=== PATIENT | male | born 1995 | race American Indian/Alaskan Native ===

== ENCOUNTER 2016-06-26 10:03 | Emergency (ER) | payer OTHER ==
[2016-06-26 10:28] VITALS: BP 129/82
--- NOTE | 2016-06-26 12:11 | Emergency Department Report ---
ED Lower Extremity HPI - General Chief Complaint: Extremity Injury, Lower Stated Complaint: LT ANKLE INJURY Time Seen by Provider: 06/26/16 11:53 Source: patient Mode of arrival: Ambulatory Limitations: No Limitations - History of Present Illness Initial Comments: Pt injured L ankle while playing basketball yesterday. No numbness. MD Complaint: ankle injury -: Sudden, days(s) (1) Injury: Ankle: Left Type of Injury: unknown Place: street/outdoors Severity: moderate Severity scale (0 -10): 6 Improves With: immobilization Worsens With: movement Context: fall Associated Symptoms: swelling, able to partially bear weight. denies: numbness , tingling - Related Data Previous Rx's Medication Instructions Recorded Last Taken Type Acetaminophen/Codeine [Tylenol #3] 1 tab PO Q6H PRN #10 tab 09/09/14 Unknown Rx Benzonatate [Tessalon Perles] 100 mg PO Q8HR #20 capsule 09/09/14 Unknown Rx Ibuprofen [Motrin 800 MG tab] 800 mg PO TID PRN #30 tablet 09/09/14 Unknown Rx Ondansetron [Zofran] 4 mg PO Q8HR PRN #14 tablet 09/09/14 Unknown Rx Butalb/Acetaminophen/Caffeine 1 each PO Q6H PRN #20 capsule 10/15/14 Unknown Rx [Fioricet 50-300-40 mg Capsule] Acetaminophen/Codeine [Tylenol #3] 1 tab PO Q6H PRN #15 tab 06/26/16 Unknown Rx Ibuprofen [Motrin] 800 mg PO Q8HR PRN #21 tablet 06/26/16 Unknown Rx Allergies Allergy/AdvReac Type Severity Reaction Status Date / Time No Known Allergies Allergy Unverified 09/09/14 07:56 ED Review of Systems ROS: Stated complaint: LT ANKLE INJURY Other details as noted in HPI Comment: All other systems reviewed and negative Constitutional: denies: chills, fever Eyes: denies: eye pain, eye discharge, vision change ENT: denies: ear pain, throat pain Respiratory: denies: cough, shortness of breath, wheezing Cardiovascular: denies: chest pain, palpitations Endocrine: no symptoms reported Gastrointestinal: denies: abdominal pain, nausea, diarrhea Genitourinary: denies: urgency, dysuria Musculoskeletal: joint swelling, arthralgia. denies: back pain Skin: denies: rash, lesions Neurological: denies: headache, weakness, paresthesias Psychiatric: denies: anxiety, depression Hematological/Lymphatic: denies: easy bleeding, easy bruising ED Past Medical Hx - Past Medical History Previous Medical History?: No - Surgical History Past Surgical History?: No Additional Surgical History: Left little finger reattachment surgery - Social History Smoking Status: Current Every Day Smoker Substance Use Type: Alcohol, Marijuana - Medications Home Medications: Home Medications Medication Instructions Recorded Confirmed Last Taken Type Acetaminophen/Codeine [Tylenol #3] 1 tab PO Q6H PRN #10 tab 09/09/14 Unknown Rx Benzonatate [Tessalon Perles] 100 mg PO Q8HR #20 capsule 09/09/14 Unknown Rx Ibuprofen [Motrin 800 MG tab] 800 mg PO TID PRN #30 tablet 09/09/14 Unknown Rx Ondansetron [Zofran] 4 mg PO Q8HR PRN #14 tablet 09/09/14 Unknown Rx Butalb/Acetaminophen/Caffeine 1 each PO Q6H PRN #20 capsule 10/15/14 Unknown Rx [Fioricet 50-300-40 mg Capsule] Acetaminophen/Codeine [Tylenol #3] 1 tab PO Q6H PRN #15 tab 06/26/16 Unknown Rx Ibuprofen [Motrin] 800 mg PO Q8HR PRN #21 tablet 06/26/16 Unknown Rx ED Physical Exam - General Limitations: No Limitations General appearance: alert, in no apparent distress - Head Head exam: Present: atraumatic, normocephalic - Eye Eye exam: Present: normal appearance - ENT ENT exam: Present: mucous membranes moist - Neck Neck exam: Present: normal inspection - Respiratory Respiratory exam: Present: normal lung sounds bilaterally. Absent: respiratory distress - Cardiovascular Cardiovascular Exam: Present: regular rate, normal rhythm. Absent: systolic murmur, diastolic murmur, rubs, gallop - GI/Abdominal GI/Abdominal exam: Present: soft, normal bowel sounds - Rectal Rectal exam: Present: deferred - Extremities Exam Extremities exam: Present: other (L ankle with moderate swelling and tenderness. Knee and foot WNL. CMS intact. ) - Back Exam Back exam: Present: normal inspection - Neurological Exam Neurological exam: Present: alert, oriented X3 - Psychiatric Psychiatric exam: Present: normal affect, normal mood - Skin Skin exam: Present: warm, dry, intact, normal color. Absent: rash ED Course Vital Signs 06/26/16 10:22 Temperature 98.6 F Pulse Rate 72 Respiratory 16 Rate Blood Pressure 129/82 O2 Sat by Pulse 100 Oximetry - Reevaluation(s) Reevaluation #1: 06/26/16 12:43 NAD, stable for d/c. ED Lower Extremity MDM - Radiology Data Radiology results: report reviewed no fx - Medical Decision Making No fx on imaging. Moderately-severe sprain- will immobilize and have him follow with ortho - Differential Diagnosis sprain, fx Critical care attestation.: If time is entered above; I have spent that time in minutes in the direct care of this critically ill patient, excluding procedure time. ED Disposition Clinical Impression: Left ankle sprain Qualifiers: Encounter type: initial encounter Involved ligament of ankle: unspecified ligament Qualified Code(s): S93.402A - Sprain of unspecified ligament of left ankle, initial encounter Disposition: DISCHARGED TO HOME OR SELFCARE Is pt being admited?: No Condition: Good Instructions: Ankle Sprain (ED) Prescriptions: Acetaminophen/Codeine [Tylenol #3] 1 tab PO Q6H PRN #15 tab PRN Reason: Pain Ibuprofen [Motrin] 800 mg PO Q8HR PRN #21 tablet PRN Reason: Pain Referrals: PRIMARY CAREMD [Primary Care Provider] - 3-5 Days KELSEY RONDON MD [Staff Physician] - 3-5 Days Time of Disposition: 12:44
--- NOTE | 2016-06-26 12:22 | XRay Report ---
LEFT ANKLE, 3 views: History: Pain and swelling. The bones are well mineralized with normal bony contours and joint alignment. No evidence for fracture or joint pathology. There is moderate diffuse soft tissue swelling. IMPRESSION: Soft tissue swelling. No acute osseous injury appreciated.
== END 2016-06-26 13:38 | disposition home or self-care (01) ==
LOC: ED 10:03
DX: S93.402A Sprain of unspecified ligament of left ankle, initial encounter (principal); F17.200 Nicotine dependence, unspecified, uncomplicated; F12.90 Cannabis use, unspecified, uncomplicated; X58.XXXA Exposure to other specified factors, initial encounter; Y93.67 Activity, basketball; Y99.2 Volunteer activity; Y92.488 Other paved roadways as the place of occurrence of the external cause